=== PATIENT | female | born 1955 | race Caucasian/White ===

== ENCOUNTER → 2018-05-25 | Outpatient (REF) | payer OTHER ==
[~2018-05-25] MED LIST: FLEXERIL PO; LORTAB 5 OR; NO; ULTRAM50 M1 PO
[2018-05-25 09:29] LABS: HEMATOCRIT 43.6 % (37.0-47.0); HEMOGLOBIN 14.1 g/dl (12.0-16.0); MEAN CELL VOLUME 91.8 fL CALC (80.0-100.0); MEAN CORPUSCULAR HGB 29.7 pG CALC (26.0-32.0); MEAN CORPUSCULAR HGB CONC 32.3 g/L CALC (32.0-36.0); RED BLOOD COUNT 4.75 mill/uL (4.20-5.60)
[2018-05-25 10:07] LABS: ALBUMIN 4.5 g/dL (3.2-5.0); ALKALINE PHOSPHATASE 84 u/l (38-126); ANION GAP 12 (6-22 (CALC)); BILIRUBIN, TOTAL 0.5 mg/dL (0.0-1.4); BUN 11 mg/dL (8-23); BUN/CREATININE RATIO 17 (12-20 (CALC)); CALCULATED LDLCHOLESTEROL 142 mg/dL (62-129 (CALC)); CARBON DIOXIDE 33 mmol/l (22-30); CHLORIDE 101 mmol/l (95-108); CHOLESTEROL HDL RATIO 3.2 (<4.4 (CALC)); CREATININE 0.6 mg/dL (0.5-1.0); GFR > 60 ML/MIN (>=60 (CALC)); GFR FOR AFR.AMER. > 60 ML/MIN (>=60 (CALC)); HDL CHOLESTEROL 70 mg/dL (>=40); POTASSIUM 4.6 mmol/l (3.5-5.1); SGOT/AST 25 u/l (9-36); SODIUM 142 mmol/l (137-146); TOTAL CHOLESTEROL 227 mg/dl (0-199); TOTAL PROTEIN 7.3 g/dL (6.3-8.2); TOTAL TRIGLYCERIDES 73 mg/dl (30-149); VLDL CHOLESTROL 15 mg/dl (1-41 (CALC))
[2018-05-25 10:34] LABS: TSH, 3RD GENERATION 9.33 uIU/mL (0.47 - 4.68)
== END | disposition home or self-care (01) | DRG 645 ==
LOC: LAB 08:39
PROVIDERS: ATTEND Nurse Practitioner
DX: E03.4 Atrophy of thyroid (acquired) (principal)

== ENCOUNTER 2021-11-02 11:26 | Emergency (ER) | payer MEDICARE ==
[~2021-11-02] VITALS: Ht 167.6 cm; Wt 79.3 kg
[2021-11-02] VITALS (10 sets, daily range): BP systolic 145–187; BP diastolic 64–93
[~2021-11-02 11:26] MED LIST changes: +LEVOTHYROXIN50 MC1 PO; +LIPITOR10 M1 PO
[2021-11-02 11:59] LABS: URINE BILIRUBIN - DIPSTICK NEGATIVE (NEGATIVE); URINE BLOOD DIPSTICK NEGATIVE (NEGATIVE); URINE COLOR YELLOW; URINE GLUCOSE - DIPSTICK NEGATIVE (NEGATIVE); URINE KETONE NEGATIVE (NEGATIVE); URINE LEUK ESTERASE NEGATIVE (NEGATIVE); URINE PROTEIN - DIPSTICK NEGATIVE (NEG-TRACE); URINE SPECIFIC GRAVITY 1.015; URINE UROBILINOGEN - DIPSTICK 0.2 E.U./dL (0.2)
[2021-11-02 12:00] LABS: URINE NITRITE - DIPSTICK NEGATIVE (Negative)
[2021-11-02 12:14] LABS: GFR FOR AFR.AMER. > 60 ML/MIN (>=60 (CALC)); GFR OTHER RACES > 60 ML/MIN (>=60 (CALC))
[2021-11-02 12:19] LABS: HEMATOCRIT 41.5 % (37.0-47.0); HEMOGLOBIN 13.8 g/dl (12.0-16.0); IMMATURE GRANULOCYTES 0.2 % (0.0-5.0); MEAN CELL VOLUME 89.2 fL CALC (80.0-100.0); MEAN CORPUSCULAR HGB 29.7 pG CALC (26.0-32.0); MEAN CORPUSCULAR HGB CONC 33.3 g/dL CAL (32.0-36.0); NEUT# 3.17 thou/uL (2.00-7.15); RED BLOOD COUNT 4.65 mill/uL (4.20-5.60)
[2021-11-02 12:55] LABS: PROTHROMBIN TIME 10.3 SECONDS (9.0-12.5)
[2021-11-02 12:58] LABS: ALBUMIN 4.4 g/dL (3.2-5.0); ALKALINE PHOSPHATASE 100 u/l (38-126); ANION GAP 13 (6-22 (CALC)); BILIRUBIN, TOTAL 0.5 mg/dL (0.0-1.4); BUN 11 mg/dL (8-23); BUN/CREATININE RATIO 17 (12-20 (CALC)); CARBON DIOXIDE 24 mmol/l (22-30); CHLORIDE 105 mmol/l (95-108); CREATININE 0.7 mg/dL (0.5-1.0); GFR FOR AFR.AMER. > 60 ML/MIN (>=60 (CALC)); GFR OTHER RACES > 60 ML/MIN (>=60 (CALC)); POTASSIUM 3.8 mmol/l (3.5-5.1); SGOT/AST 31 u/l (9-36); SODIUM 138 mmol/l (137-146); TOTAL PROTEIN 7.6 g/dL (6.3-8.2)
== END 2021-11-02 14:32 | disposition home or self-care (01) ==
LOC: ED 11:26
PROVIDERS: Emergency Medicine
DX: F41.9 Anxiety disorder, unspecified (principal); E78.5 Hyperlipidemia, unspecified; F17.200 Nicotine dependence, unspecified, uncomplicated; Z20.822 Contact with and (suspected) exposure to COVID-19
CPT/HCPCS: Q3014

== ENCOUNTER 2023-09-08 16:02 | Emergency (ER) | payer MEDICARE ==
[~2023-09-08] VITALS: Ht 167.6 cm; Wt 82.0 kg
[2023-09-08] VITALS (16 sets, daily range): BP systolic 127–179; BP diastolic 66–83
[2023-09-08 16:44] LABS: BASO% 0.5 % (0-3); EOS% 1.6 % (0-8); HEMATOCRIT 45.8 % (37.0-47.0); HEMOGLOBIN 14.5 g/dl (12.0-16.0); IMMATURE GRANULOCYTES 0.3 % (0.0-5.0); LYMPH% 39.4 % (15-41); MEAN CELL VOLUME 92.3 fL CALC (80.0-100.0); MEAN CORPUSCULAR HGB 29.2 pG CALC (26.0-32.0); MEAN CORPUSCULAR HGB CONC 31.7 g/dL CAL (32.0-36.0); MONO% 8.6 % (2-13); NEUT# 3.65 thou/uL (2.00-7.15); NEUT% 49.6 % (42-76); RED BLOOD COUNT 4.96 mill/uL (4.20-5.60); RED CELL DISTRI WIDTH 13.5 % (11.5-15.5)
[2023-09-08] MEDS ORDERED: SODIUM CHLORIDE 0.9% 1,000 ML IV ONE ×2 (16:55→18:35)
[2023-09-08 17:02] LABS: URINE BILIRUBIN - DIPSTICK Negative (NEGATIVE); URINE BLOOD DIPSTICK Negative (NEGATIVE); URINE GLUCOSE - DIPSTICK Negative (NEGATIVE); URINE KETONE 15 mg/dL (NEGATIVE); URINE LEUK ESTERASE Negative (NEGATIVE); URINE NITRITE - DIPSTICK Negative (Negative); URINE PH 7.5 (4.5-8.0); URINE PROTEIN - DIPSTICK Negative (NEG-TRACE); URINE SPECIFIC GRAVITY 1.015; URINE UROBILINOGEN - DIPSTICK 0.2 E.U./dL (0.2)
[2023-09-08 17:03] LABS: URINE COLOR Straw
[2023-09-08 17:22] LABS: MAGNESIUM 1.8 mg/dL (1.6-2.3)
[2023-09-08 17:23] LABS: ALBUMIN 4.1 g/dL (3.2-5.0); ALKALINE PHOSPHATASE 88 u/l (38-126); ANION GAP 8 (6-22 (CALC)); BILIRUBIN, TOTAL 0.6 mg/dL (0.02-1.3); BUN 8 mg/dL (8-23); BUN/CREATININE RATIO 10 (12-20 (CALC)); CARBON DIOXIDE 26 mmol/l (22-30); CHLORIDE 106 mmol/l (95-108); CREATININE 0.9 mg/dL (0.5-1.0); ESTIMATED GFR 70 ML/MIN (>=90 (CALC)); LIPASE 36 u/l (23-300); SGOT/AST 31 u/l (9-36); SODIUM 137 mmol/l (137-146); TOTAL PROTEIN 7.2 g/dL (6.3-8.2)
[2023-09-08 17:30] LABS: POTASSIUM 3.1 mmol/l (3.5-5.1)
[2023-09-08] MEDS ORDERED: POTASSIUM CHLORIDE 20 MEQ/TAB PO ONE (18:10)
== END 2023-09-08 20:18 | disposition home or self-care (01) ==
LOC: ED 16:02
PROVIDERS: Nurse Practitioner
DX: R53.1 Weakness (principal); E86.0 Dehydration; E78.5 Hyperlipidemia, unspecified; F17.200 Nicotine dependence, unspecified, uncomplicated

== ENCOUNTER 2023-09-19 21:38 | Emergency (ER) | payer MEDICARE ==
[~2023-09-19] VITALS: Ht 167.6 cm; Wt 83.0 kg
[2023-09-19 21:43] VITALS: BP 94/77
[2023-09-19] MEDS ORDERED: PROMETHAZINE HCL 25 MG/ML AMP IV ONE (21:50)
[2023-09-19] MEDS ORDERED: SODIUM CHLORIDE 0.9% 1,000 ML IV ONE (21:55)
[2023-09-19 22:01] VITALS: BP 111/63
[2023-09-19 23:01] VITALS: BP 127/56
[2023-09-20] MEDS ORDERED: CYCLOBENZAPRINE HCL 5 MG TAB PO ONE (00:55)
[2023-09-20] MEDS ORDERED: HYDROcodone 5 MG/Acetaminophen 325 MG/COMBO PO ONE (00:55)
[2023-09-20] MEDS ORDERED: FLEXERIL5 M1 PO (00:57)
[2023-09-20] MEDS ORDERED: VOLTAREN - GENE75 MG PO (00:57)
[2023-09-20] MEDS ORDERED: TRAMADOL HCL50 MG PO (00:57)
[2023-09-20 01:15] VITALS: BP 127/56
== END 2023-09-20 01:15 | disposition home or self-care (01) ==
LOC: ED 21:38
DX: S39.012A Strain of muscle, fascia and tendon of lower back, initial encounter (principal); M16.11 Unilateral primary osteoarthritis, right hip; M47.816 Spondylosis without myelopathy or radiculopathy, lumbar region; I10 Essential (primary) hypertension; X58.XXXA Exposure to other specified factors, initial encounter

== ENCOUNTER 2024-04-25 14:32 | Emergency (ER) | payer MEDICARE ==
[~2024-04-25] VITALS: Ht 167.6 cm; Wt 78.9 kg
[~2024-04-25 14:32] MED LIST changes: +FLEXERIL5 M1 PO; +TRAMADOL HCL50 MG PO; +VOLTAREN - GENE75 MG PO
[2024-04-25] MEDS ORDERED: predniSONE 20 MG/TAB PO ONE (15:10)
[2024-04-25] MEDS ORDERED: DiphenhydrAMINE HCL 25 MG CPLT PO ONE (15:10)
[2024-04-25] MEDS ORDERED: PREDNISONE50 MG PO (16:23)
[2024-04-25 16:28] VITALS: BP 132/65
== END 2024-04-25 16:42 | disposition home or self-care (01) ==
LOC: ED 14:32
DX: T78.3XXA Angioneurotic edema, initial encounter (principal); I10 Essential (primary) hypertension; F41.9 Anxiety disorder, unspecified

== ENCOUNTER 2024-04-27 11:19 | Observation (INO) | payer MEDICARE ==
[~2024-04-27] VITALS: Ht 167.6 cm; Wt 80.2 kg
[2024-04-27] VITALS (20 sets, daily range): BP systolic 108–164; BP diastolic 51–89
[~2024-04-27 11:19] MED LIST changes: +PREDNISONE50 MG PO
[2024-04-27] MEDS ORDERED: NITROGLYCERIN 0.4 MG/HR TD ONE (11:45)
[2024-04-27] MEDS ORDERED: SODIUM CHLORIDE 0.9% 1,000 ML IV ONE (12:10)
[2024-04-27 12:11] LABS: BASO% 0.4 % (0-3); EOS% 0.7 % (0-8); HEMATOCRIT 43.9 % (37.0-47.0); HEMOGLOBIN 14.4 g/dl (12.0-16.0); IMMATURE GRANULOCYTES 0.1 % (0.0-5.0); LYMPH% 30.8 % (15-41); MEAN CORPUSCULAR HGB 28.9 pG CALC (26.0-32.0); MEAN CORPUSCULAR HGB CONC 32.8 g/dL CAL (32.0-36.0); MONO% 6.2 % (2-13); NEUT# 4.42 thou/uL (2.00-7.15); NEUT% 61.8 % (42-76); RED BLOOD COUNT 4.99 mill/uL (4.20-5.60); RED CELL DISTRI WIDTH 13.7 % (11.5-15.5)
[2024-04-27 12:17] LABS: URINE BILIRUBIN - DIPSTICK Negative (NEGATIVE); URINE BLOOD DIPSTICK Negative (NEGATIVE); URINE GLUCOSE - DIPSTICK Negative (NEGATIVE); URINE KETONE Negative (NEGATIVE); URINE LEUK ESTERASE Negative (NEGATIVE); URINE NITRITE - DIPSTICK Negative (Negative); URINE PH 6.5 (4.5-8.0); URINE PROTEIN - DIPSTICK Negative (NEG-TRACE); URINE UROBILINOGEN - DIPSTICK 0.2 E.U./dL (0.2)
[2024-04-27 12:25] LABS: BILIRUBIN, TOTAL 0.5 mg/dL (0.02-1.3); CREATININE 0.7 mg/dL (0.5-1.0); POTASSIUM 3.8 mmol/l (3.5-5.1)
[2024-04-27 12:37] LABS: INTERNATIONAL NORMALIZED RATIO 0.9 RATIO (0.7-1.3)
[2024-04-27 12:38] LABS: URINE COLOR Yellow
[2024-04-27 12:39] LABS: PROTHROMBIN TIME 9.9 SECONDS (9.0-12.5)
[2024-04-27] MEDS ORDERED: ACETAMINOPHEN 325 MG/TAB PO ONE (14:30)
[2024-04-27] MEDS ORDERED: MAGNESIUM HYDROXIDE 30 ML UDC PO PRN (15:45)
[2024-04-27] MEDS ORDERED: ACETAMINOPHEN 325 MG/TAB PO PRN (15:45)
[2024-04-27] MEDS ORDERED: ENOXAPARIN SODIUM 40 MG/0.4 ML SYR SC SCH (21:00)
[2024-04-28 03:25] VITALS: BP 125/50
[2024-04-28 07:27] LABS: BASO% 0.5 % (0-3); EOS% 0.5 % (0-8); HEMOGLOBIN 13.5 g/dl (12.0-16.0); IMMATURE GRANULOCYTES 0.2 % (0.0-5.0); LYMPH% 25.2 % (15-41); MEAN CORPUSCULAR HGB CONC 32.9 g/dL CAL (32.0-36.0); NEUT# 4.49 thou/uL (2.00-7.15); NEUT% 67.6 % (42-76); RED BLOOD COUNT 4.66 mill/uL (4.20-5.60); RED CELL DISTRI WIDTH 13.7 % (11.5-15.5)
[2024-04-28 07:40] VITALS: BP 132/55
[2024-04-28 07:48] LABS: ALBUMIN 3.6 g/dL (3.2-5.0); BILIRUBIN, TOTAL 0.7 mg/dL (0.02-1.3); CREATININE 0.6 mg/dL (0.5-1.0); MAGNESIUM 1.9 mg/dL (1.6-2.3); POTASSIUM 3.5 mmol/l (3.5-5.1); TOTAL PROTEIN 6.3 g/dL (6.3-8.2)
[2024-04-28 07:54] LABS: CHOLESTEROL HDL RATIO 2.4 (<4.4 (CALC))
[2024-04-28] MEDS ORDERED: LEVOTHYROXIN75 MCG PO (08:26)
[2024-04-28] MEDS ORDERED: ONDANSETRON HCl 4 MG/2 ML SDV IV PRN (08:30)
[2024-04-28] MEDS ORDERED: LEVOTHYROXINE SODIUM 75 MCG/TAB PO SCH (09:00)
[2024-04-28] MEDS ORDERED: PANTOPRAZOLE SODIUM Sesquihydr 40 MG/TAB PO SCH (09:00)
[2024-04-28 10:54] LABS: AMYLASE 54 u/l (30-110); LIPASE 31 u/l (23-300)
[2024-04-28 10:55] VITALS: BP 127/57
[2024-04-28] MEDS ORDERED: ALPRAZolam 0.25 MG PO SCH (11:00)
[2024-04-28 15:44] VITALS: BP 133/59
[2024-04-28] MEDS ORDERED: ATORVASTATIN CALCIUM 10 MG/TAB PO SCH (17:00)
[2024-04-28 18:04] VITALS: BP 136/57
[2024-04-28] MEDS ORDERED: HYDROcodone 5 MG/Acetaminophen 325 MG/COMBO PO PRN (21:30)
[2024-04-29 00:09] VITALS: BP 111/41
[2024-04-29 05:04] VITALS: BP 122/60
[2024-04-29 05:37] LABS: BASO% 0.5 % (0-3); EOS% 2.8 % (0-8); HEMATOCRIT 40.7 % (37.0-47.0); HEMOGLOBIN 13.3 g/dl (12.0-16.0); LYMPH% 40.8 % (15-41); MEAN CELL VOLUME 89.5 fL CALC (80.0-100.0); MEAN CORPUSCULAR HGB 29.2 pG CALC (26.0-32.0); MEAN CORPUSCULAR HGB CONC 32.7 g/dL CAL (32.0-36.0); MONO% 8.3 % (2-13); NEUT# 2.76 thou/uL (2.00-7.15); NEUT% 47.6 % (42-76); RED BLOOD COUNT 4.55 mill/uL (4.20-5.60); RED CELL DISTRI WIDTH 13.5 % (11.5-15.5)
[2024-04-29 05:56] LABS: ALBUMIN 3.5 g/dL (3.2-5.0); BILIRUBIN, TOTAL 0.7 mg/dL (0.02-1.3); CREATININE 0.6 mg/dL (0.5-1.0); MAGNESIUM 2.1 mg/dL (1.6-2.3); POTASSIUM 3.7 mmol/l (3.5-5.1); TOTAL PROTEIN 6.1 g/dL (6.3-8.2)
[2024-04-29 06:21] VITALS: BP 134/62
[2024-04-29 10:19] VITALS: BP 128/58
[2024-04-29] MEDS ORDERED: PANTOPRAZOLE SO40 M1 PO (10:49)
[2024-04-29] MEDS ORDERED: ALPRAZOLAM0.25 MG PO (10:51)
[2024-04-29] MEDS ORDERED: ZOFRAN4 MG/TAB PO (10:51)
== END 2024-04-29 14:22 | disposition home or self-care (01) ==
LOC: ED 11:19 → MS2 14:51
PROVIDERS: Family Medicine; Nurse Practitioner Family; ADMIT Internal Medicine; ATTEND Internal Medicine
DX: R07.9 Chest pain, unspecified (principal); K21.9 Gastro-esophageal reflux disease without esophagitis; I10 Essential (primary) hypertension; E78.5 Hyperlipidemia, unspecified; E03.9 Hypothyroidism, unspecified; F41.9 Anxiety disorder, unspecified; F17.210 Nicotine dependence, cigarettes, uncomplicated; Z86.73 Personal history of transient ischemic attack (TIA), and cerebral infarction without residual deficits; Z88.8 Allergy status to other drugs, medicaments and biological substances
CPT/HCPCS: G0378; J1650; J2405

== ENCOUNTER 2024-05-01 04:00 | Emergency (ER) | payer MEDICARE ==
[~2024-05-01] VITALS: Ht 167.6 cm; Wt 78.0 kg
[2024-05-01] VITALS (8 sets, daily range): BP systolic 99–138; BP diastolic 41–65
[~2024-05-01 04:00] MED LIST changes: +ALPRAZOLAM0.25 MG PO; +LEVOTHYROXIN75 MCG PO; +PANTOPRAZOLE SO40 M1 PO; +ZOFRAN4 MG/TAB PO
[2024-05-01 05:38] LABS: BASO% 0.2 % (0-3); EOS% 0.8 % (0-8); HEMATOCRIT 40.4 % (37.0-47.0); HEMOGLOBIN 13.2 g/dl (12.0-16.0); IMMATURE GRANULOCYTES 0.2 % (0.0-5.0); LYMPH% 19.1 % (15-41); MEAN CORPUSCULAR HGB 29.1 pG CALC (26.0-32.0); MEAN CORPUSCULAR HGB CONC 32.7 g/dL CAL (32.0-36.0); MONO% 7.1 % (2-13); NEUT# 4.84 thou/uL (2.00-7.15); NEUT% 72.6 % (42-76); RED BLOOD COUNT 4.54 mill/uL (4.20-5.60); RED CELL DISTRI WIDTH 13.3 % (11.5-15.5)
[2024-05-01 05:51] LABS: ALBUMIN 3.8 g/dL (3.2-5.0); ALKALINE PHOSPHATASE 120 u/l (38-126); ANION GAP 12 (6-22 (CALC)); BILIRUBIN, TOTAL 0.5 mg/dL (0.02-1.3); BUN 11 mg/dL (8-23); BUN/CREATININE RATIO 17 (12-20 (CALC)); CARBON DIOXIDE 25 mmol/l (22-30); CHLORIDE 102 mmol/l (95-108); CREATININE 0.6 mg/dL (0.5-1.0); ESTIMATED GFR 97 ML/MIN (>=90 (CALC)); LIPASE 41 u/l (23-300); POTASSIUM 3.3 mmol/l (3.5-5.1); SGOT/AST 47 u/l (9-36); SODIUM 136 mmol/l (137-146); TOTAL PROTEIN 6.8 g/dL (6.3-8.2)
== END 2024-05-01 06:44 | disposition home or self-care (01) ==
LOC: ED 04:00
PROVIDERS: Family Medicine
DX: K59.00 Constipation, unspecified (principal); I10 Essential (primary) hypertension; F41.9 Anxiety disorder, unspecified; Z86.73 Personal history of transient ischemic attack (TIA), and cerebral infarction without residual deficits